=== PATIENT | female | born 1970 | race Caucasian/White ===

== ENCOUNTER 2016-11-07 22:43 | Emergency (ER) | payer OTHER ==
[~2016-11-07] VITALS: Ht 162.6 cm; Wt 70.8 kg
[2016-11-07 22:58] VITALS: BP 93/56
--- NOTE | 2016-11-07 23:25 | NUR ---
TO ER BED 6
--- NOTE | 2016-11-07 23:30 | NUR ---
45Y F BIB SELF C/O PELVIC DISCOMFORT X 6 MONTHS WITH YELLOW DISCHARGE AND ODOR. PT STATES SHE JUST FINISHED AUGMENTINX 1 WEEK AGO. PT BS IS 169 NOW. PT IS AAOX 4. BREATHING IS UNLABORED. 01/13 PAIN
[2016-11-08] MEDS ORDERED: HYDROcodone/APAP 5/325 MG 1 TAB TAB PO ONE
--- NOTE | 2016-11-08 00:26 | NUR ---
Pelvic exam performed by DR AYERS AND KOREY STUDANT with ME at bedside for entire examination. Patient tolerated procedure WELL. Patient assisted to position of comfort after examination.
[2016-11-08 00:50] LABS: APPEARANCE,URINE TURBID (CLEAR); BILIRUBIN,URINE NEGATIVE (NEGATIVE); BLOOD, URINE NEGATIVE (NEGATIVE); COLOR,URINE YELLOW (YELLOW); LEUKOCYTE ESTERASE ,URINE 2+ (NEGATIVE); NITRITE, URINE NEGATIVE (NEGATIVE); PH,URINE 5.5 (5.0-9.0); PROTEIN,URINE NEGATIVE (NEGATIVE); UGLUCOSE NEGATIVE (NEGATIVE)
[2016-11-08 01:06] LABS: RBC,URINE 0-5 (RARE) /HPF (0-5)
[2016-11-08 01:07] LABS: BACTERIA,URINE 2+ /HPF (None Seen); CALCIUM OXALATE CRYSTALS,UR 0-10 /HPF (None Seen)
[2016-11-08 01:08] LABS: URINE AMORPHOUS URATE 1+ /HPF (None Seen)
[2016-11-08] MEDS ORDERED: cefTRIAXone 250 MG in LIDOCAINE 1% ED 0.9 ML IM ONE (01:15)
[2016-11-08] MEDS ORDERED: AZITHROMYCIN 250 MG TAB PO ONE (01:15)
--- NOTE | 2016-11-08 01:45 | NUR ---
Patient discharged with v/s stable. Written and verbal after care instructions given and explained. Patient alert, oriented and verbalized understanding of instructions. Ambulatory with steady gait. All questions addressed prior to discharge. ID band removed. Patient advised to follow up with PMD. Rx of FLAGYL 500MG AND NORCO 5/325 given. Patient educated on indication of medication including possible reaction and side effects. Opportunity to ask questions provided and answered.
[2016-11-08 01:46] VITALS: BP 101/62
[2016-11-10 16:11] LABS: CHLAMYDIA TRACHOMATIS AMP DNA Negative (Negative)
== END 2016-11-08 01:46 | disposition home or self-care (01) ==
LOC: MED 22:43
DX: A59.9 Trichomoniasis, unspecified (principal); R10.2 Pelvic and perineal pain; Z88.6 Allergy status to analgesic agent; Z88.8 Allergy status to other drugs, medicaments and biological substances
CPT/HCPCS: 36415; 81001; 81025; 87070; 87086; 87205; 87210; 96372; 99284; J0696; J2001; 87491

== ENCOUNTER 2018-05-15 23:59 | Emergency (ER) | payer OTHER ==
[~2018-05-15] VITALS: Ht 162.6 cm; Wt 73.9 kg
[2018-05-16 00:13] VITALS: BP 151/90
--- NOTE | 2018-05-16 00:13 | NUR ---
PT TAKEN TO BED 1
--- NOTE | 2018-05-16 00:13 | NUR ---
TO BED # 3 AMBULATORY, REPORT GIVEN TO EMBER VERA
--- NOTE | 2018-05-16 00:25 | NUR ---
PT BIB FAMILY C/O LOWER BACK PAIN FOR 2 DAYS, RADIATING TO HER RT LEG, S/P FALL, SEEN BY ERMD 2 DAYS AGO SHE WAS NOT GIVEN PRESCRIPTION, XRAY DONE NO FRACTURE. PT HAD HX CHRONIC PAIN. UA DONE, PT DENIES N/V/D; SKIN IS INTACT, PINK/WARM/DRY; AAOX4, PERRL, WITH EVEN AND STEADY GAIT; LUNGS CLEAR BL, BREATHING UNLABORED; HR EVEN AND REGULAR, BL PERIPHERAL PULSES PRESENT; BS ACTIVE X4, NO TENDERNESS TO PALPATION. PT DENIES ANY FEVER, CP, SOB, OR COUGH AT THIS TIME; PT STATES 5/10 PAIN AT THIS TIME; VSS; PATIENT POSITIONED FOR COMFORT; HOB ELEVATED; BEDRAILS UP X2; BED DOWN.
--- NOTE | 2018-05-16 00:29 | NUR ---
Dr. Collins evaluating patient at bedside.
[2018-05-16] MEDS ORDERED: fentaNYL 0.05 MG/ML VIAL IM ONE (00:30)
--- NOTE | 2018-05-16 01:02 | NUR ---
im meds given-nadr at this time
--- NOTE | 2018-05-16 01:02 | NUR ---
pt amb w/o asst to brp.
[2018-05-16 01:05] VITALS: BP 151/90
--- NOTE | 2018-05-16 01:05 | NUR ---
Patient discharged with v/s stable. Written and verbal after care instructions given and explained. Patient verbalized understanding. Ambulatory with steady gait. All questions addressed prior to discharge. Advised to follow up with PMD.
== END 2018-05-16 01:05 | disposition home or self-care (01) ==
LOC: MED 23:59
DX: G89.29 Other chronic pain (principal); M54.5 Low back pain; J44.9 Chronic obstructive pulmonary disease, unspecified; E11.9 Type 2 diabetes mellitus without complications; I10 Essential (primary) hypertension; Z88.6 Allergy status to analgesic agent; Z88.5 Allergy status to narcotic agent; Z88.8 Allergy status to other drugs, medicaments and biological substances
CPT/HCPCS: 81002; 81025; 96372; 99283; J3010

== ENCOUNTER 2018-08-22 20:32 | Emergency (ER) | payer OTHER ==
[~2018-08-22] VITALS: Ht 162.6 cm; Wt 78.5 kg
[2018-08-22 20:34] VITALS: BP 137/84
--- NOTE | 2018-08-22 20:38 | NUR ---
TO LOBBY, VSS.
--- NOTE | 2018-08-22 22:58 | NUR ---
PT AMBULATED TO ER BED 9
--- NOTE | 2018-08-22 22:58 | NUR ---
PT AMBULATED TO BED 9
--- NOTE | 2018-08-22 23:00 | NUR ---
PT BIB SELF CO 10/10 LOWER BACK PAIN X 1 DAY S/P MECHANICAL FALL. NO OTHER INJURIES REPORTED. -- PMH: CHRONIC BACK PAIN -- XRAY DONE AT 2203
[2018-08-22] MEDS ORDERED: MORPHINE SULFATE 4 MG/ML SYR IM ONE (23:05)
--- NOTE | 2018-08-22 23:26 | NUR ---
Patient discharged with v/s stable. Written and verbal after care instructions given and explained to parent/guardian. Parent/Guardian verbalized understanding. Ambulatorysteady gait. All questions addressed prior to discharge. Advised to follow up with PMD.
[2018-08-22 23:28] VITALS: BP 136/93
== END 2018-08-22 23:31 | disposition home or self-care (01) ==
LOC: MED 20:32
DX: M54.5 Low back pain (principal); J44.9 Chronic obstructive pulmonary disease, unspecified; E11.9 Type 2 diabetes mellitus without complications; I10 Essential (primary) hypertension; F17.200 Nicotine dependence, unspecified, uncomplicated; Z88.5 Allergy status to narcotic agent; Z88.6 Allergy status to analgesic agent; Z90.49 Acquired absence of other specified parts of digestive tract; Z90.710 Acquired absence of both cervix and uterus; Z90.89 Acquired absence of other organs; W19.XXXA Unspecified fall, initial encounter; Y93.89 Activity, other specified; Y92.89 Other specified places as the place of occurrence of the external cause; Y99.8 Other external cause status
CPT/HCPCS: 72100; 96372; 99283; J2270

== ENCOUNTER 2018-11-06 02:22 | Emergency (ER) | payer OTHER ==
[~2018-11-06] VITALS: Ht 162.6 cm; Wt 72.6 kg
[2018-11-06 02:30] VITALS: BP 140/90
[2018-11-06 02:33] VITALS: BP 140/90
--- NOTE | 2018-11-06 02:33 | NUR ---
TO LOBBY A/W BED , AMBULATORY
--- NOTE | 2018-11-06 03:58 | NUR ---
PT TAKEN TO BED 10
--- NOTE | 2018-11-06 04:20 | NUR ---
47 YO F BIB SELF PRESENTS TO ED C/O 03/15 SHARP LOWER BACK PAIN THAT RADIATES INTO HER RIGHT LEG. 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 EARLIER TODAY SHE STATES SHE WAS HELPING HER MOM LIFT FURNITURE AND SHE INJURED HER BACK. NO OTHER INJURIES REPORTED. PMH-- COPD, ASTHMA, CHRONIC PAIN
--- NOTE | 2018-11-06 04:54 | NUR ---
Dr. Dorman evaluating patient at bedside.
[2018-11-06] MEDS ORDERED: MORPHINE SULFATE 2 MG/ML SYR IM ONE (05:15)
[2018-11-06] MEDS ORDERED: MORPHINE SULFATE 4 MG/ML SYR IM ONE (05:15)
--- NOTE | 2018-11-06 05:52 | NUR ---
Patient discharged with v/s stable. Written and verbal after care instructions given and explained. Patient alert, oriented and verbalized understanding of instructions. Ambulatory with steady gait. All questions addressed prior to discharge. ID band removed. Patient advised to follow up with PMD. Rx of Lidoderm patch given. Patient educated on indication of medication including possible reaction and side effects. Opportunity to ask questions provided and answered.
== END 2018-11-06 05:52 | disposition home or self-care (01) ==
LOC: MED 02:22
DX: M54.41 Lumbago with sciatica, right side (principal)
CPT/HCPCS: 96372; 99283; J2270

== ENCOUNTER 2018-11-25 13:15 | Emergency (ER) | payer OTHER ==
[~2018-11-25] VITALS: Ht 162.6 cm; Wt 72.6 kg
--- NOTE | 2018-11-25 13:22 | NUR ---
ambulated to room 3 with steady gait
[2018-11-25 13:26] VITALS: BP 117/76
--- NOTE | 2018-11-25 13:36 | NUR ---
PT BIB SELF FOR LOW BACK PAIN S/P MECH FALL 2 DAYS AGO. PT STATES SHE SLIPPED AND FELL DOWN STAIRS. DID NOT HIT HEAD -LOC. PT HAS BEEN TAKING MORPHINE AND NORCO AT HOME W/O RELIEF. DENIES N/V/D; SKIN IS PINK/WARM/DRY; AAOX4 WITH EVEN AND STEADY GAIT; PT DENIES ANY FEVER, CP, SOB, OR COUGH AT THIS TIME; PATIENT STATES PAIN OF 9/10 AT THIS TIME; VSS; PATIENT POSITIONED FOR COMFORT; HOB ELEVATED; BEDRAILS UP X1; BED DOWN. ER MD MADE AWARE OF PT STATUS.
--- NOTE | 2018-11-25 13:48 | NUR ---
DR. VOGT IS EVALUATING PT AT BEDSIDE.
[2018-11-25] MEDS ORDERED: MORPHINE SULFATE 4 MG/ML SYR IM ONE (13:50)
[2018-11-25 14:11] VITALS: BP 103/63
== END 2018-11-25 14:11 | disposition home or self-care (01) ==
LOC: MED 13:15
DX: S30.0XXA Contusion of lower back and pelvis, initial encounter (principal); J44.9 Chronic obstructive pulmonary disease, unspecified; E11.9 Type 2 diabetes mellitus without complications; I10 Essential (primary) hypertension; F17.200 Nicotine dependence, unspecified, uncomplicated; Z90.49 Acquired absence of other specified parts of digestive tract; Z90.710 Acquired absence of both cervix and uterus; W19.XXXA Unspecified fall, initial encounter; Y93.89 Activity, other specified; Y92.89 Other specified places as the place of occurrence of the external cause; Y99.8 Other external cause status
CPT/HCPCS: 81002; 96372; 99283; J2270

== ENCOUNTER 2019-01-19 03:52 | Emergency (ER) | payer OTHER ==
[~2019-01-19] VITALS: Ht 162.6 cm; Wt 72.6 kg
--- NOTE | 2019-01-19 03:56 | NUR ---
PT TAKEN TO ER BED 6
[2019-01-19 03:58] VITALS: BP 159/97
--- NOTE | 2019-01-19 04:10 | NUR ---
48 YO F BIB SELF PRESENTS TO ED C/O 03/15 CHRONIC BACK PAIN. NORCO AT HOME INEFFECTIVE. PT STATES PAIN RADIATING DOWN LEGS. PT HAS BEEN SEEN MULTIPLE TIMES HERE REQUESTING MORPHINE SHOT FOR BACK PAIN. PMH-- DEPRESSION, ANXIETY, BIPOLAR, CHRONIC PAIN, DM
--- NOTE | 2019-01-19 04:34 | NUR ---
Dr. Parker examining patient.
[2019-01-19] MEDS ORDERED: MORPHINE SULFATE 2 MG/ML SYR IM ONE (04:40)
[2019-01-19 04:56] VITALS: BP 138/85
== END 2019-01-19 04:56 | disposition home or self-care (01) ==
LOC: MED 03:52
DX: M54.41 Lumbago with sciatica, right side (principal); G89.29 Other chronic pain; J44.9 Chronic obstructive pulmonary disease, unspecified; E11.9 Type 2 diabetes mellitus without complications; I10 Essential (primary) hypertension; F41.9 Anxiety disorder, unspecified; F32.9 Major depressive disorder, single episode, unspecified; F17.200 Nicotine dependence, unspecified, uncomplicated; Z88.5 Allergy status to narcotic agent; Z88.6 Allergy status to analgesic agent; Z88.8 Allergy status to other drugs, medicaments and biological substances
CPT/HCPCS: 96372; 99283; J2270

== ENCOUNTER 2019-05-24 02:00 | Emergency (ER) | payer OTHER ==
[~2019-05-24] VITALS: Ht 162.6 cm; Wt 75.3 kg
[2019-05-24 02:28] VITALS: BP 122/82
--- NOTE | 2019-05-24 02:44 | NUR ---
PT TAKEN TO BED 2
--- NOTE | 2019-05-24 02:45 | NUR ---
PT CAME INTO ER WITH C/O RIGHT HAND PAIN AND NUMBNESS AND TINGLING. PT STATED SHE HAS CARPRAL TUNNEL AND IS CURRENTLY UNDER PAIN MANAGMENT CARE. PT STATED SHE SAW HER PCP LAST WEEK. PT IS ALERT AND IS ABLE TO ANSWERS QUESTIONS APPROPRIATELY. PT STATED THAT THIS PAIN IS AN ONGOING ISSUE. PT CURRENTLY TAKES NORCO AND MORPHINE AND STATED THAT THE MEDICATION IS NO LONGER WORKING. PT IS ABLE TO MOVE HAND WITH FULL ROM WITH SOME PAIN. PAIN LEVEL AT THIS TIME IS 7/10. NO SWELLING, REDNESS NOTED. ERMD MADE AWARE OF STATUS, SAFETY MEASURES IN PLACE.
--- NOTE | 2019-05-24 03:15 | NUR ---
PT AMBULATED TO THE RESTROOM INDEPENDANTLY
[2019-05-24] MEDS ORDERED: MORPHINE SULFATE 4 MG/ML SYR IM ONE (04:35)
[2019-05-24 05:05] VITALS: BP 121/79
== END 2019-05-24 05:05 | disposition home or self-care (01) ==
LOC: MED 02:00
DX: G56.01 Carpal tunnel syndrome, right upper limb (principal); J44.9 Chronic obstructive pulmonary disease, unspecified; E11.9 Type 2 diabetes mellitus without complications; I10 Essential (primary) hypertension; Z88.5 Allergy status to narcotic agent; Z88.8 Allergy status to other drugs, medicaments and biological substances
CPT/HCPCS: 29125; 96372; 99283; J2270

== ENCOUNTER 2023-10-06 09:15 | Emergency (ER) | payer OTHER ==
[~2023-10-06] VITALS: Ht 162.6 cm; Wt 91.2 kg
[2023-10-06 09:25] VITALS: BP 106/62; PULSE 86; RESP 16; TEMP 97.2; O2SAT 94
[2023-10-06] MEDS: oxyCODONE/APAP 5/325 MG 1 TAB TAB PO ONE (10:49)
[2023-10-06 11:22] VITALS: BP 103/67; PULSE 101; RESP 16; TEMP 97.2; O2SAT 100
== END 2023-10-06 11:21 | disposition home or self-care (01) ==
LOC: MED 09:15
DX: S82.831A Other fracture of upper and lower end of right fibula, initial encounter for closed fracture (principal); S80.212A Abrasion, left knee, initial encounter; I10 Essential (primary) hypertension; J45.909 Unspecified asthma, uncomplicated; E11.9 Type 2 diabetes mellitus without complications; Z88.5 Allergy status to narcotic agent; Z88.8 Allergy status to other drugs, medicaments and biological substances; W19.XXXA Unspecified fall, initial encounter; Y93.89 Activity, other specified; Y92.89 Other specified places as the place of occurrence of the external cause; Y99.8 Other external cause status
CPT/HCPCS: 29505; 73030; 73562; 73610; 99284

== ENCOUNTER 2023-10-08 11:17 | Emergency (ER) | payer OTHER ==
[~2023-10-08] VITALS: Ht 162.6 cm; Wt 91.2 kg
[2023-10-08 11:19] VITALS: BP 123/65; PULSE 105; RESP 56; TEMP 97.7; O2SAT 97
[2023-10-08] MEDS ORDERED: oxyCODONE/APAP 5/325 MG 1 TAB TAB PO ONE (11:55)
[2023-10-08] MEDS: MORPHINE SULFATE 4 MG/ML SYR IM ONE (12:11)
[2023-10-08 12:37] VITALS: BP 105/62; PULSE 102; RESP 24; TEMP 98.3; O2SAT 96
== END 2023-10-08 12:39 | disposition home or self-care (01) ==
LOC: MED 11:17
DX: S82.831A Other fracture of upper and lower end of right fibula, initial encounter for closed fracture (principal); J45.909 Unspecified asthma, uncomplicated; I10 Essential (primary) hypertension; E11.9 Type 2 diabetes mellitus without complications; Z79.4 Long term (current) use of insulin; Z88.5 Allergy status to narcotic agent; Z79.1 Long term (current) use of non-steroidal anti-inflammatories (NSAID); Z88.8 Allergy status to other drugs, medicaments and biological substances; Z79.899 Other long term (current) drug therapy; X58.XXXA Exposure to other specified factors, initial encounter; Y93.89 Activity, other specified; Y92.89 Other specified places as the place of occurrence of the external cause; Y99.8 Other external cause status
CPT/HCPCS: 96372; 99283; J2270

== ENCOUNTER 2023-10-23 15:19 | Emergency (ER) | payer OTHER ==
[~2023-10-23] VITALS: Ht 167.6 cm; Wt 104.3 kg
[2023-10-23 15:24] VITALS: BP 144/73; PULSE 88; RESP 18; TEMP 98.8; O2SAT 96
[2023-10-23] MEDS ORDERED: ACET-8905 PO (15:55)
[2023-10-23] MEDS: HYDROcodone/APAP 7.5/325 MG 1 TAB PO ONE (16:12)
== END 2023-10-23 16:19 | disposition home or self-care (01) ==
LOC: MED 15:19
DX: S82.61XA Displaced fracture of lateral malleolus of right fibula, initial encounter for closed fracture (principal); J45.909 Unspecified asthma, uncomplicated; E11.9 Type 2 diabetes mellitus without complications; I10 Essential (primary) hypertension; Z79.4 Long term (current) use of insulin; Z79.899 Other long term (current) drug therapy; Z88.8 Allergy status to other drugs, medicaments and biological substances; Z88.5 Allergy status to narcotic agent; Z79.1 Long term (current) use of non-steroidal anti-inflammatories (NSAID); X58.XXXA Exposure to other specified factors, initial encounter; Y93.89 Activity, other specified; Y92.89 Other specified places as the place of occurrence of the external cause; Y99.8 Other external cause status
CPT/HCPCS: 99283